=== PATIENT | male | born 1960 | race Two or more races ===

== ENCOUNTER 2025-03-28 14:53 | Emergency (ER) | payer OTHER, MEDICAID ==
[~2025-03-28] VITALS: Ht 162.6 cm; Wt 85.4 kg
[2025-03-28 15:51] LABS: Hematocrit 38.6 % (41.0-53.0); Hemoglobin 13.2 g/dL (13.5-17.5); Mean Corpuscular Hemoglobin 28.7 pg (28.0-32.0); Mean Corpuscular Volume 83.9 fL (80.0-100.0); Nucleated Red Blood Cells % 0.0 %
[2025-03-28 16:07] LABS: Alanine Aminotransferase 24 U/L (7-40); Albumin 4.0 g/dL (3.2-4.8); Alkaline Phosphatase 99 U/L (46-116); Anion Gap 8 (5-15); BUN/Creatinine Ratio 15.3 (10.0-20.0); Blood Urea Nitrogen 13 mg/dL (9-23); Calcium 9.1 mg/dL (8.7-10.4); Carbon Dioxide 27 mmol/L (20-31); Potassium 4.0 mmol/L (3.5-5.1); Sodium 142 mmol/L (136-145); Total Protein 7.4 g/dL (5.7-8.2)
[2025-03-28 16:08] LABS: Bilirubin, Total 0.7 mg/dL (0.2-1.0)
[2025-03-28 16:12] LABS: Chloride 107 mmol/L (98-107); Glucose 125 mg/dL (74-106)
[2025-03-28 16:25] LABS: INR 0.99 (0.9-1.15); Partial Thromboplastin Time 25.6 SEC (24.5-34.5); Prothrombin Time 10.5 sec (9.3-11.8)
--- NOTE | 2025-03-28 16:38 | ED.PDOC ---
Eye-HPI HPI Comments HPI: 65y M who presents to the ED for chief complaint of vision loss. - pt states he has been having vision loss in L eye since yesterday and states he lost vision completely in L eye that started gradually yesterday at 1500 and completely lost vision in L eye at approx 2100. - pt states he went to local urgent care today and referred to ED for diabetic neuropathy - pt states he was recently seen by brass sorter for eye exam and states he was referred to bottle labeler for diabetic neuropathy but states he has to first make appt with PCP before he can get referral for asset protection specialist - pt states he has noted history of DM and states he takes his DM medications intermittency and last took 1 pill 1 week prior but otherwise takes his medications whenever he feels like it - pt states he otherwise has not been evaluated by PCP or seen any provider regarding his health or DM in the past 10 -15 years. - pt otherwise is alert and oriented and denies any other symptoms - pt has noted BP of 150/75 but stable vitals otherwise Past Medical History: DM, diabetic retinopathy. Past Surgical History: abdominal surgery Social History: Denies ETOH, smoking, and drug use. Medications: unknown Allergies: NSAIDS HPI: Poor Historian. [place] L EYE VISION LOSS Past Medical History: Past Surgical History: REVIEW OF SYSTEMS: CONSTITUTIONAL: Denies acute: fever, diaphoresis, chills, generalized weakness. HEAD: Denies acute: headache, photophobia Eyes: Denies acute: Double vision, eye pain, eye discharge. EARS: Denies acute: tinnitus, hearing loss, ear discharge, ear pain, THROAT: Denies acute: sore throat, swelling, difficulty swallowing , pain with swallowing, change in voice. NECK: Denies acute: neck pain, neck swelling, stiff neck. HEART: Denies acute : chest pain, palpitations, LUNGS: Denies acute: SOB, wheezing, cough, hemoptysis ABDOMEN: Denies acute: abdominal pain, Nausea, Vomiting, diarrhea, melena , hematemesis, hematochezia SKIN: Denies acute: rash, redness, lesions, itchiness. EXTREMITIES: Denies acute: calf pain, numbness, tingling, weakness, denies pain in extremity. Denies acute: Low back pain. Neuro: Denies acute: focal neurological deficit, motor or sensory focal neurological deficit, tremors, seizure like activity, confusion, dizziness, change in mental status, loss of bowel or bladder function, cauda equina like symptoms. : Denies acute: dysuria, hematuria, flank pain, increase in urinary frequency. PSYCH: Denies acute: hallucination, suicidal ideation, homicidal ideation. PHYSICAL EXAM: General: ---no-----acute distress, awake and alert. Head: normocephalic, atraumatic. Neck: supple, trachea is midline, no swelling. Throat: Normal phonation. Eyes:, no erythema, no purulent discharge, no proptosis, no icterus. Heart: regular rate, regular rhythm, no significant murmur appreciated. Lungs: no apparent respiratory distress, Able to speak in full sentences. No wheezing, no rhonchi, no crackles. No stridors Clear to auscultation bilaterally. Abdomen: non tender to palpation, non distended, soft, no guarding, no rebound, + bowel sounds. Neuro: Awake, Alert, oriented to name, self, situation, follows commands GCS=15. Speech is normal. Skin: no petechia, no purpura, no cyanosis, non-pale, not jaundice. Lower extremities: --no - Pitting edema no deformity, no focal swelling, no calf TTP. Makes eye contact. moves all four extremities. Face: no apparent facial droop. Ambulating in the ED independently. PERRLA, EOM-I with the exception of total loss of the left eye visual field. CN 2-12 are grossly intact, No nystagmus. No nuchal rigidity, Kernig's sign, Brudzinski's sign, no meningeal signs. ED COURSE: DISCLAIMER: This medical document was created using an electronic medical record system with voice recognition software and computerized dictation system. Although this document has been carefully reviewed, there might still be some phonetic and typographical errors. Occasional wrong-word or "sound-alike" substitutions may have occurred due to the inherent limitations of voice recognition software. These areas are purely typographical due to imperfections of the software programs and do not reflect any compromise in the patient's medical care. Please read the chart carefully and recognize, using context, where these substitutions have occurred. Chief Complaint: Eye Problem Time Seen by MD: 16:00 Reviewed Notes: Medications, Allergies Allergies: Coded Allergies: NSAIDs (Verified Allergy, Unknown, 03/28/25) Information Source: Patient Mode of Arrival: Ambulatory Was a procedure done? Was a procedure done?: No EENT DIFF Eye: Chalazion, Conjunctivitis, Allergic, Bacterial, Chlamydial, Viral, Corneal Abrasion, Corneal Lacerations, Corneal Ulceration, Foreign Body-Conjunctiva, Foreign Body-Corneal, Foreign Body-Intraocular, Foreign Body-Lid, Glaucoma, Globe Rupture, Hordeolum (stye), Iritis/Uveitis, Orbital Cellulits, Periorbital Cellulits, Retinal Artery Occlusion, Retinal Vein Occlusion, Rust Ring, Subconjunctival Hemorrhag, Ultraviolet Keratitis, Virtreous Hemorrhage, Other (CVA,) X-Ray, Labs, Meds, VS Vital Signs Date Time Temp Pulse Resp B/P (MAP) Pulse Ox O2 Delivery O2 Flow Rate FiO2 03/28/25 18:15 97.2 73 17 156/78 (104) 98 97.2 03/28/25 14:57 97.7 67 18 150/75 98 97.7 Lab Test 03/28/25 15:41 03/28/25 15:08 Range/Units White Blood Count 6.7 4.4-10.8 10^3/uL Red Blood Count 4.60 4.5-5.90 10^6/uL Hemoglobin 13.2 L 13.5-17.5 g/dL Hematocrit 38.6 L 41.0-53.0 % Mean Corpuscular Volume 83.9 80.0-100.0 fL Mean Corpuscular Hemoglobin 28.7 28.0-32.0 pg Mean Corpuscular Hemoglobin Concent 34.2 32.0-36.0 g/dL Red Cell Distribution Width 14.1 11.8-14.3 % Platelet Count 174 140-450 10^3/uL Mean Platelet Volume 7.6 6.9-10.8 fL Neutrophils (%) (Auto) 57.2 37.0-80.0 % Lymphocytes (%) (Auto) 29.7 10.0-50.0 % Monocytes (%) (Auto) 8.9 0.0-12.0 % Eosinophils (%) (Auto) 2.8 0.0-7.0 % Basophils (%) (Auto) 1.4 0.0-2.0 % Neutrophils # (Auto) 3.8 1.6-8.6 10 ^3/uL Lymphocytes # (Auto) 2.0 0.4-5.4 10 ^3/uL Monocytes # (Auto) 0.6 0-1.3 10 ^3/uL Eosinophils # (Auto) 0.2 0-0.8 10 ^3/uL Basophils # (Auto) 0.1 0-0.2 10 ^3/uL Nucleated Red Blood Cells 0.0 % Erythrocyte Sedimentation Rate 21 H 0-20 mm/hr Prothrombin Time 10.5 9.3-11.8 sec Prothrombin Time INR 0.99 0.9-1.15 Activated Partial Thromboplast Time 25.6 24.5-34.5 SEC Sodium Level 142 136-145 mmol/L Potassium Level 4.0 3.5-5.1 mmol/L Chloride Level 107 98-107 mmol/L Carbon Dioxide Level 27 20-31 mmol/L Anion Gap 8 5-15 Blood Urea Nitrogen 13 9-23 mg/dL Creatinine 0.85 0.700-1.30 mg/dL Glomerular Filtration Rate Calc 96 >90 mL/min BUN/Creatinine Ratio 15.3 10.0-20.0 Serum Glucose 125 H 74-106 mg/dL Calcium Level 9.1 8.7-10.4 mg/dL Magnesium Level 1.8 1.6-2.6 mg/dL Total Bilirubin 0.7 0.2-1.0 mg/dL Aspartate Amino Transferase (AST) 25 13-40 U/L Alanine Aminotransferase (ALT) 24 7-40 U/L Alkaline Phosphatase 99 46-116 U/L Troponin I High Sensitivity < 3 L </=54 ng/L B-Type Natriuretic Peptide 23.74 0-100 pg/mL Total Protein 7.4 5.7-8.2 g/dL Albumin 4.0 3.2-4.8 g/dL POC Glucose 137 H 70-106 mg/dl [facility] [id number] [facility] [address] Ph: [phone] DIAGNOSTIC IMAGING Diagnostic Imaging Report : [id number] Signed PATIENT: CONCHIS DONNELLY ACCT: [id number] UNIT: [id number] : 1960 LOC: ER ROOM / BED: / AGE / SEX: 65 / M ADM STATUS: REG ER SERVICE [id number] ORDERING PHYSICIAN: KEENAN MCFARLANE DO PROCEDURE(s): [place] - ANGIO HEAD/Neck REASON: L EYE VISION LOSS ORDER NUMBER(s): [id number], ACCESSION NUMBER(s): [id number] EXAM: CT ANGIO HEAD/NECK INDICATION: L EYE VISION LOSS EXAM DATE: 03/28/2025 05:16 PM COMPARISON: None TECHNIQUE: A noncontrast dataset was obtained. Subsequently, a volumetric data acquisition of the head and neck was obtained during the arterial phase of enhancement. A total of 60 mL of Omnipaque 350 was administered intravenously. One or more of the following radiation dose reduction techniques were used for this examination: automated exposure control, adjustment of the mA and/or kV according to patient size, use of iterative reconstruction technique. 3-D postprocessing is performed by technologist including MIP imaging Determination of the degree of stenosis in the internal carotid arteries is obtained using measurements of distal internal carotid diameter (directly or indirectly) as the denominator for stenosis measurement. The method utilized is similar to that utilized in the [place] Symptomatic Carotid Endarterectomy Trial (NASCET) method. If the degree of stenosis is greater than 30%, the actual percentage stenosis is given in the body of the report. Radiation Dose Information: CT Dose: CTDI volume is 33.64 mGy. Dose-length product is 1395.22 mGy*cm Findings: Neck: The aortic arch and great vessels are within normal limits. The common carotid arteries, carotid bifurcation, internal and external carotid arteries are within normal limits. Vertebral arteries are within normal limits, with right dominant. No evidence of aneurysm, dissection, or stenosis. The pharynx and upper airway appear normal with no evidence of stricture or focal lesion. No evidence of cervical lymphadenopathy. The thyroid, submandibular, and parotid glands appear normal. Osseous structures and lung apices appear unremarkable. Brain: Intracranial Anterior Circulation: The RIGHT anterior circulation including the right internal carotid artery, middle cerebral artery, and anterior cerebral artery demonstrates no abnormality. The LEFT anterior circul ation including the left internal carotid artery, middle cerebral artery, and anterior cerebral artery demonstrates no abnormality. The anterior communicating artery is unremarkable. No posterior communicating arteries are identified. Vertebrobasilar Circulation: The basilar artery is unremarkable. The RIGHT posterior cerebral artery, superior cerebellar artery, and posterior inferior cerebellar artery demonstrate no abnormality. The LEFT posterior cerebral artery, superior cerebellar artery, and posterior inferior cerebellar artery demonstrate no abnormality. Other: The visualized dural sinuses and intradural venous system are unremarkable. No evidence of intracranial mass, mass effect, or abnormal enhancement. The skull base, calvaria, orbits, and overlying soft tissues are intact. The paranasal sinuses, mastoid air cells, and middle ear cavities are clear and well aerated. Impression: 1. No evidence of stenosis, aneurysm, or dissection. ATED BY: NARCISA MURO DO DICTATED DATE/TIME: 03/28/251758 SIGNED BY: NARCISA MURO DO SIGNED DATE/TIME: 03/28/251758 CC: Time of 1ST Reevaluation: 00:00 Reevaluation 1ST: Patient Education/Counseling: Diagnosis, Treatment Family Education/Counseling: No Family Present Comments MDM: patient presented with the above HPI.---sudden left eye vision loss---workup was initiated. patient was found with the above mentioned diagnosis. the following medications were ordered: please refer to order lists of meds and tests obtained by myself Dr. Mcfarlane. Patient ED course and VS have been stabilized. Patient has been reassessed in the ED and remained in a stable condition. Pertinent incidental findings were discussed with the patient and/or family. Patient/family voices understanding and is agreeable with plan. Patient has been observed in the ED adequate length of time to insure improvement/stability. Escalation of care considered: Consideration of escalation to observation or admission No associated headache. Labs are unremarkable. Visual acuity test was ordered. Patient was ADMITTED to the medicine team for further evaluation and treatment of their presentation. Later I was notified that the patient eloped/AMA All the reports of any imaging studies that were ordered by myself were reviewed by myself. SEPSIS Sepsis Screen Date sepsis recognized/suspect: Mar 28, 2025 Time Sepsis recognized/suspect: 1500 Recent Procedure: No On Antibiotic Therapy: No Respiratory Rate >20: No Heart Rate >90: No Temp<36 C (96.8 F) or >38.3 C: No SBP <90 or MAP <65 mmHG: No New Acute Mental Status Change: No Is the patient on CPAP, BIPAP,: No Physician Orders Octave Board Assembler (03/28/25 ) Vital Signs .PER UNIT PROTOCOL (03/28/25 15:49) Octave Board Assembler (03/28/25 15:49) Angio Head/Neck (03/28/25 15:49) Visual Acuity (03/28/25 ) Vital Signs Date Time Temp Pulse Resp B/P (MAP) Pulse Ox O2 Delivery O2 Flow Rate FiO2 03/28/25 18:15 97.2 73 17 156/78 (104) 98 97.2 03/28/25 14:57 97.7 67 18 150/75 98 97.7 Laboratory Tests Test 03/28/25 15:41 White Blood Count 6.7 10^3/uL (4.4-10.8) Departure 1 Departure Time of Disposition: 18:33 Impression: Primary Impression: Sudden visual loss, left eye Additional Impression: Left against medical advice Disposition: 07 LEFT AWOL/ELOPED Admit to: Tele Condition: Guarded Additional Instructions: Patient left against medical advice Discharged With: Self Critical Care Note Critical Care Time?: No I personally scribed for KEENAN MCFARLANE DO ([email or web address]) on 03/28/25 at 16:38. Electronically submitted by Jayne Avila ([facility]). I personally scribed for KEENAN MCFARLANE DO ([email or web address]) on 03/28/25 at 20:50. Electronically submitted by Jayne Avila ([facility]). KEENAN MCFARLANE DO Mar 28, 2025 16:38
[2025-03-28] MEDS: IOHEXOL 350 MG/ML 100ML IJ ONE (17:55)
--- NOTE | 2025-03-28 18:01 | DVH ---
EXAM: CT ANGIO HEAD/NECK INDICATION: L EYE VISION LOSS EXAM DATE: 03/28/2025 05:16 PM COMPARISON: None TECHNIQUE: A noncontrast dataset was obtained. Subsequently, a volumetric data acquisition of the hea d and neck was obtained during the arterial phase of enhancement. A total of 60 mL of Omnipaque 350 w as administered intravenously. One or more of the following radiation dose reduction techniques were used for this examination: automated exposure control, adjustment of the mA and/or kV according to pa tient size, use of iterative reconstruction technique. 3-D postprocessing is performed by technologist including MIP imaging Determination of the degree of stenosis in the internal carotid arteries is obtained using measureme nts of distal internal carotid diameter (directly or indirectly) as the denominator for stenosis keith urement. The method utilized is similar to that utilized in the [place] Symptomatic Carotid E ndarterectomy Trial (NASCET) method. If the degree of stenosis is greater than 30%, the actual percen tage stenosis is given in the body of the report. Radiation Dose Information: CT Dose: CTDI volume is 33.64 mGy. Dose-length product is 1395.22 mGy*cm Findings: Neck: The aortic arch and great vessels are within normal limits. The common carotid arteri es, carotid bifurcation, internal and external carotid arteries are within normal limits. Vertebral a rteries are within normal limits, with right dominant. No evidence of aneurysm, dissection, or stenos is. The pharynx and upper airway appear normal with no evidence of stricture or focal lesion. No evidence of cervical lymphadenopathy. The thyroid, submandibular, and parotid glands appear normal. Osseous structures and lung apices appear unremarkable. Brain: Intracranial Anterior Circulation: The RIGHT anterior circulation including the right internal carotid artery, middle cerebral artery, and anterior cerebral artery demonstrates no abnormality. Th e LEFT anterior circulation including the left internal carotid artery, middle cerebral artery, and a nterior cerebral artery demonstrates no abnormality. The anterior communicating artery is unremarkabl e. No posterior communicating arteries are identified. Vertebrobasilar Circulation: The basilar artery is unremarkable. The RIGHT posterior cerebral artery, superior cerebellar artery, and posterior inferior cerebellar artery demonstrate no abnormality. The LEFT posterior cerebral artery, superior cerebellar artery, and posterior inferior cerebellar artery demonstrate no abnormality. Other: The visualized dural sinuses and intradural venous system are unremarkable. No evidence of int racranial mass, mass effect, or abnormal enhancement. The skull base, calvaria, orbits, and overlying soft tissues are intact. The paranasal sinuses, mastoid air cells, and middle ear cavities are clear and well aerated. Impression: 1. No evidence of stenosis, aneurysm, or dissection.
[2025-03-28 18:15] VITALS: BP 156/78; PULSE 73; RESP 17; TEMP 97.2; O2SAT 98
== END 2025-03-28 20:52 | disposition left against medical advice (07) ==
LOC: ER 14:53
DX: H54.62 Unqualified visual loss, left eye, normal vision right eye (principal); Z88.6 Allergy status to analgesic agent; Z79.899 Other long term (current) drug therapy; Z86.2 Personal history of diseases of the blood and blood-forming organs and certain disorders involving the immune mechanism
CPT/HCPCS: 36415; 70496; 70498; 80053; 82947; 83735; 83880; 84484; 85025; 85610; 85652; 85730; 99285; Q9967; 82962